=== PATIENT | female | born 1940 | race Caucasian/White ===

== ENCOUNTER → 2018-10-07 | Outpatient (CLI) | payer MEDICARE, BC ==
[~2018-10-07] MED LIST: ALBU2.5V8 INH; APIX2.5T PO; CALC-71 PO; DOCU-109 PO; FLEC100T PO; IBAN150T15 PO; IBUP200T58 PO; METO-239 PO; OXYC1TAB15 PO; PSYL0.5215 PO; TIOT18CA IH
[2018-10-07 09:51] VITALS: BP 162/72
== END | disposition home or self-care (01) ==
LOC: SURG 09:41
PROVIDERS: ATTEND Anesthesiology
DX: M47.813 Spondylosis without myelopathy or radiculopathy, cervicothoracic region (principal); M48.02 Spinal stenosis, cervical region; M54.6 Pain in thoracic spine; M54.2 Cervicalgia; J44.9 Chronic obstructive pulmonary disease, unspecified; G89.29 Other chronic pain; M19.90 Unspecified osteoarthritis, unspecified site; F17.210 Nicotine dependence, cigarettes, uncomplicated; Z90.89 Acquired absence of other organs; Z79.51 Long term (current) use of inhaled steroids; Z79.84 Long term (current) use of oral hypoglycemic drugs; Z79.01 Long term (current) use of anticoagulants; Z79.899 Other long term (current) drug therapy
CPT/HCPCS: 99204

== ENCOUNTER 2019-05-29 14:42 | Emergency (ER) | payer MEDICARE, BC ==
[~2019-05-29] VITALS: Ht 170.2 cm; Wt 60.0 kg
[2019-05-29 15:06] VITALS: BP 182/81
[2019-05-29] MEDS ORDERED: KETOROLAC 60 MG/2 ML VIAL. IM ONE (15:15)
[2019-05-29] MEDS ORDERED: ORPHENADRINE CITRATE 60 MG/2 ML VIAL. IM ONE (15:15)
--- NOTE | 2019-05-29 15:29 | RAD ---
THORACIC SPINE 3V History: Pain Comparison: Chest CT August 02, 2015 Findings: 3 views of the thoracic spine are submitted. There again has been vertebroplasty at T8 and T9. There is again compression deformity of T7 and superiorly of T6. There is now central and superior height loss of T10 and T11. There is anterior compression deformity of T12 in part present previously although somewhat increased degree of height loss. There is diffuse bone demineralization. There is cervical degenerative disc disease greatest C4-5 to C6-7. There is some atherosclerotic calcification greater near aortic arch. Lungs are not fully included. There is emphysema. Impression: 1. There is bone demineralization. There are multilevel thoracic compression fractures, new at T10 and T11 since 2016 exam and somewhat increased degree of height loss anteriorly of the T12 vertebral body. Correlation with point tenderness is advised. MRI would more accurately evaluate for chronicity of fractures. 2. There is emphysema. Electronically signed by: Yan Mojica MD (05/29/2019 3:26 PM) [id number]
--- NOTE | 2019-05-29 15:49 | PHYS DOC ---
Past History Past Medical History: A-Fib, COPD Past Surgical History: No Surgical History Alcohol Use: None General Adult EDM: Chief Complaint: BACK PAIN OR INJURY HPI: HPI: Patient is a 79-year-old female with chronic back pain who presents with several day history of worsening pain. She states that almost any movement causes her pain seems in the mid back and its radiating to the left. She denies any increased shortness of breath fever chills or sweats. She denies having any rash the pain she states is sharp and severe. [] Review of Systems: Review of Systems: Constitutional: Denies fever or chills Eyes: Denies change in visual acuity HENT: Denies nasal congestion or sore throat Respiratory: Denies cough or shortness of breath Cardiovascular: Denies chest pain or edema GI: Denies abdominal pain, nausea, vomiting, bloody stools or diarrhea : Denies dysuria Musculoskeletal: Reports back pain Integument: Denies rash Neurologic: Denies headache, focal weakness or sensory changes Endocrine: Denies polyuria or polydipsia Lymphatic: Denies swollen glands Psychiatric: Denies depression or anxiety Heart Score: Risk Factors: Risk Factors: DM, Current or recent (<one month) smoker, HTN, HLP, family history of CAD, obesity. Risk Scores: Score 0 - 3: 2.5% MACE over next 6 weeks - Discharge Home Score 4 - 6: 20.3% MACE over next 6 weeks - Admit for Clinical Observation Score 7 - 10: 72.7% MACE over next 6 weeks - Early Invasive Strategies Current Medications: Current Meds: Current Medications Medications (Trade) Dose Ordered Sig/[facility] Start Time Stop Time Status Last Admin Dose Admin Ketorolac Tromethamine (Toradol Im) 60 mg 1X ONCE 05/29/19 15:15 05/29/19 15:16 DC 05/29/19 15:31 60 MG Orphenadrine Citrate (Norflex) 60 mg 1X ONCE 05/29/19 15:15 05/29/19 15:16 DC 05/29/19 15:31 60 MG Allergies: Allergies: Allergies Coded Allergies Type Severity Reaction Last Updated Verified Penicillins Allergy Intermediate rash 10/07/18 Yes Physical Exam: PE: Constitutional: Well developed, well nourished, moderate distress, non-toxic appearance. [] HENT: Normocephalic, atraumatic, bilateral external ears normal, oropharynx moist, no oral exudates, nose normal. [] Eyes: PERRLA, EOMI, conjunctiva normal, no discharge. [] Neck: Normal range of motion, no tenderness, supple, no stridor. [] Cardiovascular:Heart rate regular rhythm, no murmur [] Lungs & Thorax: Bilateral breath sounds clear to auscultation [] Abdomen: Bowel sounds normal, soft, no tenderness, no masses, no pulsatile masses. [] Skin: Warm, dry, no erythema, no rash. [] Back: Tender to palp mid back proximally T9-10-11 area. [] Extremities: No tenderness, no cyanosis, no clubbing, ROM intact, no edema. [] Neurologic: Alert and oriented X 3, normal motor function, normal sensory function, no focal deficits noted. [] Psychologic: Affect normal, judgement normal, mood normal. [] Current Patient Data: Vital Signs: Vital Signs Date Time Temp Pulse Resp B/P (MAP) Pulse Ox O2 Delivery O2 Flow Rate FiO2 05/29/19 15:06 97.3 76 18 182/81 (114) 94 Room Air EKG: EKG: [] Radiology/Procedures: Radiology/Procedures: [] Impressions: REASON: pain PROCEDURE: THORACIC SPINE 3V THORACIC SPINE 3V History: Pain Comparison: Chest CT August 02, 2015 Findings: 3 views of the thoracic spine are submitted. There again has been vertebroplasty at T8 and T9. There is again compression deformity of T7 and superiorly of T6. There is now central and superior height loss of T10 and T11. There is anterior compression deformity of T12 in part present previously although somewhat increased degree of height loss. There is diffuse bone demineralization. There is cervical degenerative disc disease greatest C4-5 to C6-7. There is some atherosclerotic calcification greater near aortic arch. Lungs are not fully included. There is emphysema. Impression: 1. There is bone demineralization. There are multilevel thoracic compression fractures, new at T10 and T11 since 2016 exam and somewhat increased degree of height loss anteriorly of the T12 vertebral body. Correlation with point tenderness is advised. MRI would more accurately evaluate for chronicity of fractures. 2. There is emphysema. Course & Med Decision Making: Course & Med Decision Making Pertinent Labs and Imaging studies reviewed. (See chart for details) [] Niraj Disclaimer: Dragon Disclaimer: This electronic medical record was generated, in whole or in part, using a voice recognition dictation system. Departure Departure: Impression: Primary Impression: Thoracic compression fracture Qualified Codes: S22.070A - Wedge compression fracture of t9-t10 vertebra, initial encounter for closed fracture Disposition: HOME, SELF-CARE Condition: STABLE Referrals: [facility] (PCP) Patient Instructions: Back, Compression Fracture Additional Instructions: Continue your pain medication as prescribed. You will need to follow with an orthopedic surgeon in the very near future. KALYN BAIG DO May 29, 2019 15:49
== END 2019-05-29 16:01 | disposition home or self-care (01) ==
LOC: ER 14:42
DX: S22.070A Wedge compression fracture of T9-T10 vertebra, initial encounter for closed fracture (principal); J44.9 Chronic obstructive pulmonary disease, unspecified; I48.20 Chronic atrial fibrillation, unspecified; Z88.0 Allergy status to penicillin; X58.XXXA Exposure to other specified factors, initial encounter; Y93.89 Activity, other specified; Y92.89 Other specified places as the place of occurrence of the external cause; Y99.8 Other external cause status
CPT/HCPCS: 72072; 96372; 99284; J1885; J2360

== ENCOUNTER → 2019-08-28 | Outpatient (CLI) | payer MEDICARE, BC ==
[2019-08-28 11:52] VITALS: BP 173/94
== END | disposition home or self-care (01) ==
LOC: SURG 11:09
PROVIDERS: ATTEND Anesthesiology
DX: M47.814 Spondylosis without myelopathy or radiculopathy, thoracic region (principal); J44.9 Chronic obstructive pulmonary disease, unspecified; M19.90 Unspecified osteoarthritis, unspecified site; M48.02 Spinal stenosis, cervical region; M47.812 Spondylosis without myelopathy or radiculopathy, cervical region; Z79.899 Other long term (current) drug therapy
CPT/HCPCS: 99214; G0463

== ENCOUNTER → 2019-11-25 | Outpatient (CLI) | payer MEDICARE, BC ==
[2019-08-28 11:52] VITALS: BP 173/94
--- NOTE | 2019-11-25 15:14 | RAD ---
PA and lateral chest x-ray compared to similar exam dated August 01, 2015 for no indication. FINDINGS: Lungs are hyperinflated. There is a right basilar effusion, and there is new peripheral interstitial thickening of the lung bases which could reflect interstitial fibrosis, pulmonary edema, or interstitial infiltrate. Heart size is mildly enlarged but stable. Postsurgical changes of prior kyphoplasty are noted at 2 levels in the thoracic spine, likely T8 and T9, and there are chronic compression deformities of T7 and T12. New compression deformity is are seen at T10, T11, and T6. IMPRESSION: 1. COPD and chronic interstitial disease. 2. New new since 2016 are a right pleural effusion and worsening interstitial opacities in right base which could reflect a focal interstitial infiltrate. 3. Osteoporosis with multiple compression fractures, several which are new since 2016. Electronically signed by: Eleazar Calloway MD (11/25/2019 3:10 PM) [id number]
== END ==
LOC: DXRAD 11:39
PROVIDERS: ATTEND Physician Assistant
DX: J90 Pleural effusion, not elsewhere classified (principal); J92.9 Pleural plaque without asbestos; J44.9 Chronic obstructive pulmonary disease, unspecified; I50.9 Heart failure, unspecified; J84.10 Pulmonary fibrosis, unspecified; M43.8X4 Other specified deforming dorsopathies, thoracic region; M81.0 Age-related osteoporosis without current pathological fracture
CPT/HCPCS: 71046

== ENCOUNTER → 2020-01-01 | Outpatient (CLI) | payer MEDICARE, BC ==
[2019-08-28 11:52] VITALS: BP 173/94
--- NOTE | 2020-01-01 11:55 | RAD ---
EXAM: DUAL ENERGY X-RAY ABSORPTIOMETRY (DEXA). HISTORY: Postmenopausal screening. FINDINGS: The lowest measured T-score is -5.3 in the right distal radius, based on a bone mineral density of 0.337 g/cm^2. Refer to the worksheets for full detail. No comparison examinations are available. IMPRESSION: Osteoporosis. Bone mineral density yields a T-score of -2.5 or less. Fracture risk is high. FRAX was not calculated. METHODOLOGY: Dual energy x-ray absorptiometry was performed to measure bone mineral density. The following analysis is based on the 2019 Official Positions of the International Society for Clinical Densitometry: Measurements of the hips and the average of L1-L4 are preferred. When the spine and/or hip cannot be feasibly measured or interpreted, or in the setting of hyperparathyroidism, distal radial bone mineral density may be measured. The lumbar spine T-score is based on the average bone mineral density of L1-L4. In the setting of artifact or anatomic abnormality, some lumbar levels may be excluded, and the remaining levels used for calculation. A single lumbar level is not used for diagnosis, and if only a single level is available for assessment, another anatomic site will be used to assign a diagnosis. The hip T-score is based on the bone mineral density measurement of the femoral neck or total proximal femur of either side, whichever is lowest. Bilateral mean values are not used for diagnosis. The forearm T-score is derived from 33% of the distal radius of the nondominant forearm. For postmenopausal and perimenopausal women, and men age 50 or older, of all ethnic groups, T-scores are calculated through comparison of the current measurement with the NHANES III database standard for females aged 20-29 years. The lowest T-score of the evaluated anatomic sites is used to assign a diagnosis based on the World Health Organization densitometric classification. In premenopausal females and males younger than age 50, a Z-score is calculated based on population specific reference data for patient sex and self-reported ethnicity. Electronically signed by: Ilya Butler MD (01/01/2020 11:52 AM) [id number]
== END ==
LOC: PMG 10:59
PROVIDERS: ATTEND Physician Assistant
DX: Z13.820 Encounter for screening for osteoporosis (principal); M81.0 Age-related osteoporosis without current pathological fracture; M81.8 Other osteoporosis without current pathological fracture; N95.1 Menopausal and female climacteric states; S22.000A Wedge compression fracture of unspecified thoracic vertebra, initial encounter for closed fracture; X58.XXXA Exposure to other specified factors, initial encounter; Y93.89 Activity, other specified; Y92.89 Other specified places as the place of occurrence of the external cause; Y99.8 Other external cause status
CPT/HCPCS: 77080; 77081

== ENCOUNTER 2020-03-04 22:52 | Inpatient (IN) | payer MEDICARE, BC ==
[~2020-03-04] VITALS: Ht 165.1 cm; Wt 52.0 kg
--- NOTE | 2020-03-05 | EKG ---
[address] [address] Test Date: 2020-03-04 Test Time: 23:54:27 Pat Name: HAKAN CAPONE Department: Room: Gender: F [employer]: : 1940 Requested By: DEMETRIS HENDERSON Order Number: [id number] Reading MD: Measurements Intervals [place] Rate: 94 P: HI: QRS: 148 QRSD: 134 T: -46 QT: 366 QTc: 463 Interpretive Statements IRREGULAR RHYTHM, NO P-WAVE FOUND ABNORMAL RIGHT AXIS DEVIATION LOW LIMB LEAD VOLTAGE RIGHT BUNDLE BRANCH BLOCK RVH WITH REPOLARIZATION ABNORMALITY QRS(T) CONTOUR ABNORMALITY CONSIDER ANTEROSEPTAL MYOCARDIAL DAMAGE ABNORMAL ECG RI6.02 No previous ECG available for comparison
[2020-03-05] MEDS: IV RINGERS SOLUTION,LACTATED 1,000 ML IV SCH ×3 (00:05→06:47)
[2020-03-05 00:43] LABS: BASO # 0.1 x10^3/uL (0.0-0.2); BASO % 1 % (0-3); EOS % 0 % (0-3); HEMATOCRIT 44.8 % (36.0-47.0); HEMOGLOBIN 14.8 g/dL (12.0-15.5); LYMPH # 0.8 x10^3/uL (1.0-4.8); LYMPH % 6 % (24-48); MEAN CORPUSCULAR HEMOGLOBIN 30 pg (25-35); MEAN CORPUSCULAR HGB CONC 33 g/dL (31-37); MEAN CORPUSCULAR VOLUME 92 fL (79-100); MONO # 2.1 x10^3/uL (0.0-1.1); MONO % 17 % (0-9); NEUT # 9.3 x10^3uL (1.8-7.7); NEUT % 76 % (31-73); PLATELET COUNT 275 x10^3/uL (140-400); RED BLOOD COUNT 4.88 x10^6/uL (3.50-5.40); RED CELL DISTRIBUTION WIDTH 15.2 % (11.5-14.5); WHITE BLOOD COUNT 12.3 x10^3/uL (4.0-11.0)
[2020-03-05 00:51] LABS: ALBUMIN 2.6 g/dL (3.4-5.0); C REACTIVE PROTEIN 59.9 mg/L (0-3.3); CALCIUM 8.4 mg/dL (8.5-10.1); CREATININE 0.8 mg/dL (0.6-1.0); DIRECT BILIRUBIN 0.6 mg/dL (0.0-0.2); MAGNESIUM 1.9 mg/dL (1.8-2.4); TOTAL BILIRUBIN 1.3 mg/dL (0.2-1.0); TOTAL PROTEIN 6.7 g/dL (6.4-8.2)
[2020-03-05 01:18] LABS: POTASSIUM 3.4 mmol/L (3.5-5.1)
[2020-03-05] MEDS ORDERED: AZITHROMYCIN 250 MG in IV NORMAL SALINE 250ML 250 ML IV ONE (01:30)
[2020-03-05] MEDS ORDERED: methylPREDNISolone SOD SUCC PF 125 MG/2 ML VIAL. IV ONE (01:30)
[2020-03-05] MEDS ORDERED: ALBUTEROL SULFATE 8GM INHALER. INH ONE (01:30)
--- NOTE | 2020-03-05 01:31 | RAD ---
EXAM: CT head and cervical spine without contrast INDICATION: Headache and right-sided neck pain COMPARISON: None TECHNIQUE: Axial CT imaging through the head and cervical spine without intravenous contrast. Sagitta l and coronal reformats were obtained. One or more of the following individualized dose reduction techniques were utilized for this examinat ion: 1. Automated exposure control 2. Adjustment of the mA and/or kV according to patient size 3. Use of iterative reconstruction technique. FINDINGS: CT head: No intracranial hemorrhage, acute infarct, or mass lesion. Lopez-white matter differentiation is maint ained. Ventricles and sulci are prominent. There is mild periventricular white matter hypoattenuation . The skull and scalp are intact. Visualized paranasal sinuses and mastoid air cells are clear globes and orbits are intact.. CT cervical spine: The bones are diffusely demineralized. There is no acute fracture. 2 mm anterolisthesis of C7 on T1. Mild reversal lordosis. There is severe disc space narrowing, greatest at C4-C5 and C5-C6. Uncoverteb ral joint proliferation results in severe left and moderate right foraminal narrowing at C3-C4, moder ate to severe right and moderate left foraminal narrowing at C4-C5, severe left and moderate to sever e right foraminal narrowing at C5-C6, and severe bilateral foraminal narrowing at C6-C7. There are di sc osteophyte complexes at multiple levels, greatest at C6-C7 where there is mild canal narrowing. Mi ld multilevel facet arthrosis. Prevertebral soft tissues normal.Moderate centrilobular emphysema. IMPRESSION: 1. No acute intracranial abnormality. 2. No acute osseous abnormality of the cervical spine. 3. Severe degenerative disc disease with multilevel advanced foraminal narrowing and mild canal narro wing at C6-C7. Electronically signed by: Breonna King MD (03/05/2020 1:29 AM) [id number]
[2020-03-05] MEDS ORDERED: CONTRAST GIVEN. MC PRN (02:00)
[2020-03-05] MEDS ORDERED: IOHEXOL 350 MG/ML 100 ML VIAL. IV ONE (02:00)
[2020-03-05] MEDS ORDERED: cefTRIAXone SODIUM 1 GM VIAL ONE (02:16)
[2020-03-05] MEDS ORDERED: AZITHROMYCIN 500 MG VIAL. IV ONE (02:16)
[2020-03-05] MEDS ORDERED: IV NORMAL SALINE 50ML 50 ML ONE (02:16)
[2020-03-05] MEDS ORDERED: IV NORMAL SALINE 250ML 250 ML ONE (02:16)
--- NOTE | 2020-03-05 02:28 | RAD ---
EXAM: XR CHEST 1V 03/04/2020 12:39 AM CLINICAL INDICATION: Headache, neck pain, cough and congestion COMPARISON: Chest radiograph 11/25/2019 TECHNIQUE: AP view the chest FINDINGS: The heart is mildly enlarged. There are calcified mediastinal and hilar lymph nodes. Lungs are hyperexpanded. There are new airspace opacities in the left lung base. The small left pleural ef fusion. Small right pleural effusion versus pleural thickening is unchanged. Chronic appearing inters titial changes are stable. No pneumothorax. No acute osseous abnormality. IMPRESSION: 1. New left basilar opacities and small left pleural effusion suspicious for pneumonia. 2. Unchanged hyperexpansion of the lungs with chronic interstitial changes and pleural effusion or pl eural thickening at the right lung base. Electronically signed by: Breonna King MD (03/05/2020 2:25 AM) [id number]
--- NOTE | 2020-03-05 02:48 | RAD ---
Study: CT CHEST WITH CONTRAST - PULMONARY ANGIOGRAM History: Cough, dyspnea, congestion Comparison: Chest radiograph 03/04/[address] chest 08/02/2015 Technique: Helical CT of the chest performed after the administration of intravenous contrast and ti med for angiographic evaluation of the pulmonary arteries per PE protocol. Coronal and sagittal 3D MD P reformations were obtained. One or more of the following individualized dose reduction techniques were utilized for this examinat ion: 1. Automated exposure control 2. Adjustment of the mA and/or kV according to patient size 3. Use of iterative reconstruction technique. Findings: Pulmonary Arteries: Contrast bolus is adequate. No acute pulmonary embolism. Main pulmonary artery is enlarged measuring 4.1 cm. Heart/Systemic Vasculature: The right heart is enlarged. No pericardial effusion. The thoracic aorta is normal in caliber. Mediastinum: No lymphadenopathy.. Lungs: There is a new consolidation in the lingula and patchy groundglass and tree-in-bud opacities i n the lower lobes, and right middle lobe. Focal tree-in-bud opacities in the posterior right upper lo be. There is diffuse airway wall thickening. There is mild to moderate centrilobular emphysema. No pl eural effusion. Neck/Axilla/Body Wall: There is a coarse calcification in the left thyroid lobe. No axillary lymphade nopathy. Breast tissue symmetric. Upper Abdomen: Contrast refluxes into the inferior vena cava. There is moderate calcified atheroscler osis of the abdominal aorta. Calcified splenic granulomas noted. Bones: Unchanged T8 and T9 compression fractures post vertebroplasty. Unchanged T7 compression fractu re with approximately 75 percent vertebral body height loss. Worsened, now 40 percent vertebral heigh t loss of T6 compression fracture. New T5 compression fracture with milder height loss. New compressi on fractures of T10 and T11 with 50 percent vertebral body height loss and worsened height loss of th e T12 compression fracture, now 75 percent vertebral body height loss. There is 2 mm retropulsion of the posterior inferior cortex of T12. Degenerative disc disease in the upper lumbar spine. IMPRESSION: 1. No acute pulmonary embolism. 2. Lingular consolidation and patchy groundglass and tree-in-bud nodules in the left lower lobe and right lung suspicious for pneumonia. 3. Enlarged right heart. 4. Multiple compression fractures in the thoracic spine, some of which are new from 2016 and some clemens ve worsened height loss, as described. Electronically signed by: Breonna King MD (03/05/2020 2:45 AM) [id number]
--- NOTE | 2020-03-05 03:19 | PHYS DOC ---
Past History Past Medical History: A-Fib, Anxiety, Arthritis, Bronchitis, CAD, COPD, Pneumonia, Other Additional Past Medical Histor: hernia, compression fracture, smoker Past Surgical History: Tonsillectomy Smoking: Cigarettes Additional Smoking Information: daughter is not sure exactly how much pt smokes Alcohol Use: None General Adult EDM: Chief Complaint: HEADACHE HPI: HPI: ".I got a bad headache.. I feel bad everywhere.. Muscles hurt... Short of breath... More than usual... Yes I still smoke but only half pack a day... At most...".. " I galileo stopped some my meds... just felt like they were not helping..." Patient is a 80 year old female who presents with above hx and complaints myalgia, arthralgia, malaise, headache, dyspnea, fatigue, weakness, A. fib, and nonproductive cough. No history of recent travel or specific ill contacts. does get dialysis 3 times a week. Patient normally follows with Dr. Cash. Recently stopped taking some her meds because she was just tired and did not think she needed them anymore. Patient does have a history of dementia, chronic bronchitis, tobacco use, COPD, CHF, A. fib, arthritis , multiple compression fx of spine. . Patient is accompanied by her daughter. Daughter states her mom has not been as alert.. and maybe more confused recently. Review of Systems: Review of Systems: Constitutional: Subjective complaints of fever Eyes: Denies change in visual acuity HENT: Denies nasal congestion or sore throat Respiratory: History nonproductive cough and shortness of breath Cardiovascular: Lt chest wall pain GI: Denies abdominal pain, , vomiting, bloody stools or diarrhea . Complains o f nausea : Denies dysuria Musculoskeletal: Complains of generalized muscle and joint pain. Complains of generalized weakness Integument: Denies rash Neurologic: Complains of headache,. Denies focal weakness or sensory changes. Complains of generalized weakness Endocrine: Denies polyuria or polydipsia Lymphatic: Denies swollen glands Psychiatric: Denies depression or anxiety Family History: Family History: Noncontributory to presentation. Current Medications: Current Meds: Current Medications Medications (Trade) Dose Ordered Sig/Dhiraj Start Time Stop Time Status Last Admin Dose Admin Albuterol Sulfate (Ventolin Hfa Inhaler) 2 puff 1X ONCE 03/05/20 01:30 03/05/20 01:51 DC 03/05/20 01:30 2 PUFF Azithromycin (Zithromax) 500 mg STK-MED ONCE 03/05/20 02:16 03/05/20 02:16 DC Azithromycin 250 mg/Sodium Chloride 250 ml @ 250 mls/hr 1X ONCE 03/05/20 01:30 03/05/20 02:29 DC 03/05/20 02:00 250 MLS/HR Ceftriaxone Sodium 1 gm/ Sodium Chloride 50 ml @ 100 mls/hr 1X ONCE 03/05/20 01:30 03/05/20 01:59 DC 03/05/20 02:30 100 MLS/HR Ceftriaxone Sodium (Rocephin) 1 gm STK-MED ONCE 03/05/20 02:16 03/05/20 02:16 DC Fentanyl Citrate (Fentanyl 2ml Vial) 100 mcg STK-MED ONCE 03/05/20 00:03 03/05/20 00:03 DC Info (Do NOT chart on this entry -- for MONITORING) 1 each PRN DAILY PRN 03/05/20 02:00 03/07/20 01:59 Iohexol (Omnipaque 350 Mg/ml) 100 ml 1X ONCE 03/05/20 02:00 03/05/20 02:01 DC 03/05/20 01:59 100 ML Lactated Ringer's 1,000 ml @ 100 mls/hr Q10H 03/05/20 00:00 03/05/20 09:59 03/05/20 00:14 100 MLS/HR Methylprednisolone Sodium Succinate (SOLU-Medrol 125MG VIAL) 125 mg 1X ONCE 03/05/20 01:30 03/05/20 01:51 DC 03/05/20 02:00 125 MG Sodium Chloride 50 ml @ As Directed STK-MED ONCE 03/05/20 02:16 03/05/20 02:16 DC Allergies: Allergies: Allergies Coded Allergies Type Severity Reaction Last Updated Verified Penicillins Allergy Intermediate rash 10/07/18 Yes Physical Exam: PE: Constitutional: Moderate acute distress, chronically ill in appearance. [] HENT: Normocephalic, atraumatic, bilateral external ears normal, oropharynx moist, no oral exudates, nose normal. [] Temporal arteries nontender to palpation. Eyes: PERRLA, EOMI, conjunctiva normal, no discharge. [] Neck: Normal range of motion, no tenderness, supple, no stridor. Upper neck tenderness Cardiovascular:Heart rate irregular irregular regular rhythm, no murmur, PMI to left Lungs & Thorax: Bilateral breath sounds equal apex with wheezing throughout and crackles on left base on auscultation [] Abdomen: Bowel sounds normal, soft, no tenderness, no masses, no pulsatile masses. [] Skin: Warm, dry, no erythema, no rash. Poor turgor Back: No tenderness, no CVA tenderness. [] Extremities: No tenderness, no cyanosis, no clubbing, ROM intact, no edema. Arthritic changes. No cording appreciated Neurologic: Alert and oriented X 3, patient moves all extremities on request, has distal sensory,, no focal deficits noted. DTRs +2 patella and brachial. Case Management Associate equal. No drift. Does appear to have some memory deficits Psychologic: Affect anxious, judgement normal, mood depressed. Memory deficits Current Patient Data: Labs: Laboratory Tests Test 03/04/20 23:57 White Blood Count 12.3 x10^3/uL (4.0-11.0) H Red Blood Count 4.88 x10^6/uL (3.50-5.40) Hemoglobin 14.8 g/dL (12.0-15.5) Hematocrit 44.8 % (36.0-47.0) Mean Corpuscular Volume 92 fL (79-100) Mean Corpuscular Hemoglobin 30 pg (25-35) Mean Corpuscular Hemoglobin Concent 33 g/dL (31-37) Red Cell Distribution Width 15.2 % (11.5-14.5) H Platelet Count 275 x10^3/uL (140-400) Neutrophils (%) (Auto) 76 % (31-73) H Lymphocytes (%) (Auto) 6 % (24-48) L Monocytes (%) (Auto) 17 % (0-9) H Eosinophils (%) (Auto) 0 % (0-3) Basophils (%) (Auto) 1 % (0-3) Neutrophils # (Auto) 9.3 x10^3uL (1.8-7.7) H Lymphocytes # (Auto) 0.8 x10^3/uL (1.0-4.8) L Monocytes # (Auto) 2.1 x10^3/uL (0.0-1.1) H Eosinophils # (Auto) 0.0 x10^3/uL (0.0-0.7) Basophils # (Auto) 0.1 x10^3/uL (0.0-0.2) Prothrombin Time 11.3 SEC (9.4-11.4) Prothrombin Time INR 1.1 (0.9-1.1) Activated Partial Thromboplast Time 28 SEC (23-33) D-Dimer (Camelia) 1.80 mg/L (0.00-0.50) H Sodium Level 132 mmol/L (136-145) L Potassium Level 3.4 mmol/L (3.5-5.1) L Chloride Level 93 mmol/L (98-107) L Carbon Dioxide Level 38 mmol/L (21-32) H Anion Gap 1 (6-14) L Blood Urea Nitrogen 8 mg/dL (7-20) Creatinine 0.8 mg/dL (0.6-1.0) Estimated GFR (Cockcroft-Gault) 69.0 Glucose Level 104 mg/dL (70-99) H Calcium Level 8.4 mg/dL (8.5-10.1) L Magnesium Level 1.9 mg/dL (1.8-2.4) Total Bilirubin 1.3 mg/dL (0.2-1.0) H Direct Bilirubin 0.6 mg/dL (0.0-0.2) H Aspartate Amino Transferase (AST) 21 U/L (15-37) Alanine Aminotransferase (ALT) 20 U/L (14-59) Alkaline Phosphatase 112 U/L (46-116) Creatine Kinase 25 U/L (26-192) L Troponin I Quantitative < 0.017 ng/mL (0-0.055) C-Reactive Protein 59.9 mg/L (0-3.3) H HB-Hox-U-Type Natriuretic Peptide 3700 pg/mL (0-449) H Total Protein 6.7 g/dL (6.4-8.2) Albumin 2.6 g/dL (3.4-5.0) L Lipase 122 U/L (73-393) Vital Signs: Vital Signs Date Time Temp Pulse Resp B/P (MAP) Pulse Ox O2 Delivery O2 Flow Rate FiO2 03/05/20 02:32 98 Nasal Cannula 2.0 03/05/20 02:30 95 16 124/97 (106) 03/04/20 23:25 98.6 EKG: EKG: My interpretation EKG shows a A. fib rhythm irregularly irregular with right axis deviation and low limb voltage. Does have anterior septal changes. No findings of acute STEMI or contralateral changes. Does have a right bundle branch block with RVH. [] Radiology/Procedures: Radiology/Procedures: [address] [address] IMAGING REPORT Signed PATIENT: HAKAN CAPONEUNT: [id number] : 1940 LOCATION: ER AGE: 80 SEX: F EXAM STATUS: REG ER ORD. PHYSICIAN: DEMETRIS HENDERSON MD REASON: head pain, neck pain, cough, congestion PROCEDURE: PORTABLE CHEST 1V EXAM: XR CHEST 1V 03/04/2020 12:39 AM CLINICAL INDICATION: Headache, neck pain, cough and congestion COMPARISON: Chest radiograph 11/25/2019 TECHNIQUE: AP view the chest FINDINGS: The heart is mildly enlarged. There are calcified mediastinal and hilar lymph nodes. Lungs are hyperexpanded. There are new airspace opacities in the left lung base. The small left pleural effusion. Small right pleural effusion versus pleural thickening is unchanged. Chronic appearing interstitial changes are stable. No pneumothorax. No acute osseous abnormality. IMPRESSION: 1. New left basilar opacities and small left pleural effusion suspicious for pneumonia. 2. Unchanged hyperexpansion of the lungs with chronic interstitial changes and pleural effusion or pleural thickening at the right lung base. Electronically signed by: Breonna King MD (03/05/2020 2:25 AM) [id number] DICTATED AND SIGNED BY: BREONNA KING MD DATE: 03/05/20 0223 CC: DEMETRIS HENDERSON MD; RIGO CASH MD ~MTH0 [address] [address] IMAGING REPORT Signed PATIENT: HAKAN CAPONEUNT: [id number] : 1940 LOCATION: ER AGE: 80 SEX: F EXAM STATUS: REG ER ORD. PHYSICIAN: DEMETRIS HENDERSON MD REASON: Headache and right sided neck pain PROCEDURE: CT HEAD AND CERVICAL SPINE WO EXAM: CT head and cervical spine without contrast INDICATION: Headache and right-sided neck pain COMPARISON: None TECHNIQUE: Axial CT imaging through the head and cervical spine without intravenous contrast. Sagittal and coronal reformats were obtained. One or more of the following individualized dose reduction techniques were utilized for this examination: 1. Automated exposure control 2. Adjustment of the mA and/or kV according to patient size 3. Use of iterative reconstruction technique. FINDINGS: CT head: No intracranial hemorrhage, acute infarct, or mass lesion. Lopez-white matter differentiation is maintained. Ventricles and sulci are prominent. There is mild periventricular white matter hypoattenuation. The skull and scalp are intact. Visualized paranasal sinuses and mastoid air cells are clear globes and orbits are intact.. CT cervical spine: The bones are diffusely demineralized. There is no acute fracture. 2 mm anterolisthesis of C7 on T1. Mild reversal lordosis. There is severe disc space narrowing, greatest at C4-C5 and C5-C6. Uncovertebral joint proliferation results in severe left and moderate right foraminal narrowing at C3-C4, moderate to severe right and moderate left foraminal narrowing at C4-C5, severe left and moderate to severe right foraminal narrowing at C5-C6, and severe bilateral foraminal narrowing at C6-C7. There are disc osteophyte complexes at multiple levels, greatest at C6-C7 where there is mild canal narrowing. Mild multilevel facet arthrosis. Prevertebral soft tissues normal.Moderate centrilobular emphys chastity. IMPRESSION: 1. No acute intracranial abnormality. 2. No acute osseous abnormality of the cervical spine. 3. Severe degenerative disc disease with multilevel advanced foraminal narrowing and mild canal narrowing at C6-C7. Electronically signed by: Breonna King MD (03/05/2020 1:29 AM) [id number] DICTATED AND SIGNED BY: BREONNA KING MD DATE: 03/05/20 0119 CC: DEMETRIS HENDERSON MD; RIGO CASH MD ~MTH0 IMAGING REPORT Signed PATIENT: HAKAN CAPONECOUNT: [id number] : 1940 LOCATION: ER AGE: 80 SEX: F EXAM STATUS: REG ER ORD. PHYSICIAN: DEMETRIS HENDERSON MD REASON: COUGH, DYSPNEA, congestion Omni 350 100cc PROCEDURE: CT ANGIOGRAPHY CHEST Study: CT CHEST WITH CONTRAST - PULMONARY ANGIOGRAM History: Cough, dyspnea, congestion Comparison: Chest radiograph 03/04/[address] chest 08/02/2015 Technique: Helical CT of the chest performed after the administration of intravenous contrast and timed for angiographic evaluation of the pulmonary arteries per PE protocol. Coronal and sagittal 3D MIP reformations were obtained. One or more of the following individualized dose reduction techniques were utilized for this examination: 1. Automated exposure control 2. Adjustment of the mA and/or kV according to patient size 3. Use of iterative reconstruction technique. Findings: Pulmonary Arteries: Contrast bolus is adequate. No acute pulmonary embolism. Main pulmonary artery is enlarged measuring 4.1 cm. Heart/Systemic Vasculature: The right heart is enlarged. No pericardial effusion. The thoracic aorta is normal in caliber. Mediastinum: No lymphadenopathy.. Lungs: There is a new consolidation in the lingula and patchy groundglass and tree-in-bud opacities in the lower lobes, and right middle lobe. Focal tree-in-bud opacities in the posterior right upper lobe. There is diffuse airway wall thickening. There is mild to moderate centrilobular emphysema. No pleural effusion. Neck/Axilla/Body Wall: There is a coarse calcification in the left thyroid lobe. No axillary lymphadenopathy. Breast tissue symmetric. Upper Abdomen: Contrast refluxes into the inferior vena cava. There is moderate calcified atherosclerosis of the abdominal aorta. Calcified splenic granulomas noted. Bones: Unchanged T8 and T9 compression fractures post vertebroplasty. Unchanged T7 compression fracture with approximately 75 percent vertebral body height loss. Worsened, now 40 percent vertebral height loss of T6 compression fracture. New T5 compression fracture with milder height loss. New compression fractures of T10 and T11 with 50 percent vertebral body height loss and worsened height loss of the T12 compression fracture, now 75 percent vertebral body height loss. There is 2 mm retropulsion of the posterior inferior cortex of T12. Degenerative disc disease in the upper lumbar spine. IMPRESSION: 1. No acute pulmonary embolism. 2. Lingular consolidation and patchy groundglass and tree-in-bud nodules in the left lower lobe and right lung suspicious for pneumonia. 3. Enlarged right heart. 4. Multiple compression fractures in the thoracic spine, some of which are new from 2016 and some have worsened height loss, as described. Electronically signed by: Breonna King MD (03/05/2020 2:45 AM) [id number] DICTATED AND SIGNED BY: BREONNA KING MD DATE: 03/05/20 0230 CC: DEMETRIS HENDERSON MD; RIGO CASH MD ~MTH0 0 Heart Score: HEART Score for Chest Pain: HEART Score for Chest Pain Response (Comments) Value History Moderately Suspicious 1 ECG Nonspecific Repolarizatio 1 Age > 65 2 Risk Factors 1 or 2 Risk Factors 1 Troponin < Normal Limit 0 Total 5 Risk Factors: Risk Factors: DM, Current or recent (<one month) smoker, HTN, HLP, family history of CAD, obesity. Risk Scores: Score 0 - 3: 2.5% MACE over next 6 weeks - Discharge Home Score 4 - 6: 20.3% MACE over next 6 weeks - Admit for Clinical Observation Score 7 - 10: 72.7% MACE over next 6 weeks - Early Invasive Strategies Course & Med Decision Making: Course & Med Decision Making Pertinent Labs and Imaging studies reviewed. (See chart for details) Review presentation, testing and tx. plan with Dr. Cedillo. Admit to medical room. Hermelindo. Impression: 1. Atypical Pneumonia 2. CHF diastolic and systolic dysfunction BNP 3700 3. A. fib- with controlled ventricle rate 4. Elevated D-dimer 1.80 5. Viral syndrome-headache, myalgia, arthralgia, malaise 6. COPD-exacerbation 7. DNRs No intubation, No shocks, No CPR. (Meds and comfort care okay) [] Niraj Disclaimer: Niraj Disclaimer: This electronic medical record was generated, in whole or in part, using a voice recognition dictation system. Departure Departure: Referrals: RIGO CASH MD (PCP) Niraj Disclaimer This chart was dictated in whole or in part using Voice Recognition software in a busy, high-work load, and often noisy Emergency Department environment. It may contain unintended and wholly unrecognized errors or omissions. Dragon Disclaimer This chart was dictated in whole or in part using Voice Recognition software in a busy, high-work load, and often noisy Emergency Department environment. It may contain unintended and wholly unrecognized errors or omissions. Dragon Disclaimer This chart was dictated in whole or in part using Voice Recognition software in a busy, high-work load, and often noisy Emergency Department environment. It may contain unintended and wholly unrecognized errors or omissions. DEMETRIS HENDERSON MD Mar 05, 2020 03:19
[2020-03-05 03:26] LABS: INFLUENZA A PATIENT NEGATIVE (NEGATIVE); INFLUENZA B PATIENT NEGATIVE (NEGATIVE)
[2020-03-05] MEDS ORDERED: FUROSEMIDE 40 MG/4 ML VIAL IVP ONE (03:30)
[2020-03-05 03:44] LABS: BILIRUBIN,URINE NEG (NEG); CLARITY,URINE HAZY; COLOR,URINE AMBER; GLUCOSE,URINE NEG (NEG); NITRITE,URINE NEG (NEG)
[2020-03-05 03:45] LABS: BACTERIA,URINE FEW /HPF (0-FEW); RBC,URINE OCC /HPF (0-2); SQUAMOUS EPITHELIAL CELL,UR FEW /LPF; WBC,URINE OCC /HPF (0-4)
[2020-03-05] MEDS ORDERED: ONDANSETRON PF 4 MG/2 ML VIAL. IVP PRN (04:00)
[2020-03-05 04:10] LABS: BARBITURATES NEG (NEG); BENZODIAZEPINES NEG (NEG); CANNABINOIDS NEG (NEG); COCAINE NEG (NEG); METHADONE NEG (NEG); OPIATES NEG (NEG); PHENCYCLIDINE NEG (NEG)
[2020-03-05 04:17] LABS: AMPHETAMINE/METHAMPHETAMINE NEG (NEG)
[2020-03-05 06:47] VITALS: BP 107/79
[2020-03-05] MEDS: LACTOBACILLUS RHAMNOSUS GG 1 CAPSULE. PO SCH ×2 (07:46→21:27)
[2020-03-05] MEDS: methylPREDNISolone SOD SUCC PF 125 MG/2 ML VIAL. IV SCH (07:46)
[2020-03-05] MEDS: APIXABAN 2.5 MG TABLET PO SCH ×2 (07:47→21:28)
[2020-03-05] MEDS ORDERED: IPRATRPIUM/ALBUTEROL 0.5/2.5MG 3 ML NEBU. NEB SCH (08:00)
[2020-03-05 08:23] VITALS: BP 110/77
[2020-03-05] MEDS ORDERED: AZITHROMYCIN 500 MG in IV NORMAL SALINE 250ML 250 ML IV SCH (08:30)
--- NOTE | 2020-03-05 08:47 | HP ---
ADMIT DATE: 03/05/2020 ATTENDING PHYSICIAN: Dr. Graham. CHIEF COMPLAINT: Weakness, headache. HISTORY OF PRESENT ILLNESS: The patient is an 80-year-old female with multiple medical issues. She comes in complaining of profound weakness and shortness of breath. No specific COVID exposure. Her gets dialysis 3 times a week. She has significant chronic obstructive pulmonary disease, recently she stopped some of her meds because she was tired. She was found to have bilateral pneumonia along with her COPD changes. The CT showed no evidence of pulmonary embolus, but she has ground glass appearing atypical pneumonia. Her COVID swab is pending. She is admitted for further treatment and evaluation. She received intravenous Rocephin and Zithromax in the ED, Her daughter states mom has been more confused recently. PAST MEDICAL HISTORY: Significant for paroxysmal atrial fibrillation, generalized anxiety, arthritis, coronary artery disease, COPD, and pneumonia. In addition, she had compression fracture. She has been a heavy smoker in the past. CURRENT MEDICATIONS: Reviewed. She was taking albuterol, Eliquis, flecainide, metoprolol, oxycodone, Metamucil and Spiriva. ALLERGIES: SHE HAS ALLERGIES TO PENICILLIN, EXACT REACTION IS UNCLEAR. SOCIAL HISTORY: Smoking history as noted. FAMILY HISTORY: Unobtainable. REVIEW OF SYSTEMS: Significant for generalized debilitation, chronic lung issues. She lives with her . No documented COVID exposure. All other systems reviewed and turned to be negative. PHYSICAL EXAMINATION: GENERAL: When I saw her, this is a pleasant, elderly, cachectic female. INITIAL VITAL SIGNS: Showed a blood pressure 130/82, pulse is 95 and regular, temperature 98.6 degrees Fahrenheit, oxygen saturation 94% on 2 liters nasal cannula. HEENT: Orbits are sunken. Pupils are reactive. Sclerae nonicteric. Oropharynx is clear. NECK: Supple. No stridor. LUNGS: Diffuse rhonchi in the left base, diminished breath sounds and shallow respirations. CARDIOVASCULAR: Showed distant heart tones. No gallops. ABDOMEN: Soft, scaphoid, nontender, no organomegaly. Bowel sounds are hypoactive. EXTREMITIES: Showed no cyanosis or edema. NEUROLOGIC: Focally intact. No deficit. Speech is fluent. She is nonambulatory at this time. SKIN: Otherwise, warm and dry. LABORATORY DATA: CT as noted. White count is 12,300, hemoglobin 14.8 gram. Electrolytes: Sodium 132 mEq, potassium 3.4, creatinine is 0.8. Cardiac enzymes negative. Nonfasting blood sugar 104. ASSESSMENT: 1. An 80-year-old female with bilateral pneumonia, atypical in nature consistent with COVID-19. 2. Chronic obstructive pulmonary disease. 3. Acute on chronic respiratory failure. 4. Pulmonary cachexia. 5. Compression fractures, multiple. 6. Continued tobacco abuse. 7. History of coronary artery disease. 8. Paroxysmal atrial fibrillation. 9. Chronic anticoagulation. PLAN: 1. Admit to the inpatient unit. 2. Empiric intravenous antibiotics. 3. Cortical steroids. 4. Diet as tolerated. 5. Continue home meds. 6. Gentle IV hydration. She is a DNR per advanced directive. Her prognosis is quite guarded. RADHA GRAHAM MD DR: CONSUELO/coleman JOB#: [id number] / [id number] RIGO Tineo MD
[2020-03-05] MEDS ORDERED: APIXABAN 2.5 MG TABLET PO SCH (09:00)
[2020-03-05 11:10] VITALS: BP 100/66
[2020-03-05] MEDS: IPRATROPIUM/ALBUTEROL 20/100mcg/INH INHALER. INH SCH ×3 (12:00→21:27)
[2020-03-05 15:40] VITALS: BP 107/66
[2020-03-05] MEDS: ACETAMINOPHEN 325 MG TABLET PO PRN ×2 (17:19→21:27)
[2020-03-05 20:40] VITALS: BP 114/83
[2020-03-05] MEDS ORDERED: AZITHROMYCIN 250 MG TABLET. PO SCH (21:00)
[2020-03-05] MEDS: AZITHROMYCIN 500 MG in IV NORMAL SALINE 250ML 250 ML IV SCH (22:20)
[2020-03-06 06:45] VITALS: BP 121/75
[2020-03-06] MEDS: MORPHINE SULFATE 2 MG/ML DISP.SYRIN. IV PRN ×3 (06:50→21:18)
[2020-03-06] MEDS: IPRATROPIUM/ALBUTEROL 20/100mcg/INH INHALER. INH SCH ×4 (08:00→20:00)
[2020-03-06] MEDS: LACTOBACILLUS RHAMNOSUS GG 1 CAPSULE. PO SCH ×2 (08:08→21:18)
[2020-03-06] MEDS: APIXABAN 2.5 MG TABLET PO SCH ×2 (08:08→21:18)
[2020-03-06] MEDS: methylPREDNISolone SOD SUCC PF 125 MG/2 ML VIAL. IV SCH (08:08)
[2020-03-06] MEDS: ACETAMINOPHEN 325 MG TABLET PO PRN ×2 (08:08→13:26)
--- NOTE | 2020-03-06 08:27 | PN ---
DATE: 03/06/2020 ATTENDING PHYSICIAN: Dr. Radha Graham SUBJECTIVE: She is better today. She is alert. She is less dyspneic. She denied any new pain, nausea, preliminary report shows that her COVID-19 swab was negative. OBJECTIVE FINDINGS: VITAL SIGNS: Blood pressure this morning is 121/75, pulse is 55 and regular, oxygen saturation 100% on 2 liters by nasal cannula, temperature is 97.8 degrees Fahrenheit. HEENT: Head is without trauma. Pupils are reactive. Sclerae are nonicteric. The oropharynx is clear. NECK: Supple, no bruits. LUNGS: Coarse rhonchi bilaterally. CARDIOVASCULAR: Showed distant heart tones. No gallops. ABDOMEN: Soft. EXTREMITIES: Without edema. NEUROLOGIC: Focally intact. Speech is fluent. SKIN: Warm and dry. EXTREMITIES: Showed significant muscle wasting. ASSESSMENT: 1. An 80-year-old female with acute on chronic respiratory failure, improved. 2. Bilateral pneumonia, bacterial. COVID-19 ruled out. 3. Chronic obstructive pulmonary disease. 4. Longstanding tobacco abuse. 5. Pulmonary cachexia. 6. Osteoporosis. 7. Multiple compression fractures. 8. History of coronary artery disease. 9. Paroxysmal atrial fibrillation. 10. Chronic anticoagulation. PLAN: 1. Continue empiric antibiotics as ordered. 2. Cortical steroids. 3. Advance diet as tolerated. 4. Continue home meds. 5. Gentle IV hydration. She remains a DNR per advanced directive. 6. Exercise oximetry. 7. Follow up chest x-ray tomorrow morning. RDAHA GRAHAM MD DR: CONSUELO/coleman JOB#: [id number] / [id number]
[2020-03-06 11:07] LABS: CALCIUM 8.3 mg/dL (8.5-10.1); CREATININE 0.8 mg/dL (0.6-1.0); POTASSIUM 3.7 mmol/L (3.5-5.1)
[2020-03-06 11:14] VITALS: BP 113/75
[2020-03-06 11:23] LABS: BASO % 0 % (0-3); EOS % 0 % (0-3); HEMATOCRIT 46.7 % (36.0-47.0); HEMOGLOBIN 15.3 g/dL (12.0-15.5); LYMPH # 0.3 x10^3/uL (1.0-4.8); LYMPH % 3 % (24-48); MEAN CORPUSCULAR HEMOGLOBIN 31 pg (25-35); MEAN CORPUSCULAR HGB CONC 33 g/dL (31-37); MEAN CORPUSCULAR VOLUME 94 fL (79-100); MONO # 0.6 x10^3/uL (0.0-1.1); MONO % 6 % (0-9); NEUT # 8.5 x10^3uL (1.8-7.7); NEUT % 90 % (31-73); PLATELET COUNT 256 x10^3/uL (140-400); RED BLOOD COUNT 4.95 x10^6/uL (3.50-5.40); RED CELL DISTRIBUTION WIDTH 15.2 % (11.5-14.5); WHITE BLOOD COUNT 9.4 x10^3/uL (4.0-11.0)
[2020-03-06 19:00] VITALS: BP 126/79
[2020-03-06] MEDS: AZITHROMYCIN 500 MG in IV NORMAL SALINE 250ML 250 ML IV SCH (22:08)
[2020-03-07] MEDS: ACETAMINOPHEN 325 MG TABLET PO PRN ×2 (00:37→21:29)
[2020-03-07 06:14] VITALS: BP 137/77
--- NOTE | 2020-03-07 08:19 | RAD ---
EXAM: CHEST ONE VIEW. HISTORY: Pneumonia. COMPARISON: 03/05/2020. FINDINGS: A frontal view of the chest is obtained. Small bilateral pleural effusions are stable. Subpleural predominant interstitial opacities are not c learly changed. An airspace infiltrate in the left base has improved. There is no pneumothorax. The h eart is not enlarged. There are atherosclerotic calcifications of the aorta. Vertebroplasty changes a re noted. IMPRESSION: 1. Mildly improved left basilar infiltrate. 2. Stable subpleural interstitial opacities consistent with interstitial lung disease. Stable small p leural effusions. Electronically signed by: Ilya Butler MD (03/07/2020 8:16 AM) [id number]
[2020-03-07] MEDS: IPRATROPIUM/ALBUTEROL 20/100mcg/INH INHALER. INH SCH ×4 (08:21→20:00)
[2020-03-07] MEDS: APIXABAN 2.5 MG TABLET PO SCH ×2 (08:22→21:29)
[2020-03-07] MEDS: methylPREDNISolone SOD SUCC PF 125 MG/2 ML VIAL. IV SCH (08:22)
[2020-03-07] MEDS: LACTOBACILLUS RHAMNOSUS GG 1 CAPSULE. PO SCH ×2 (08:22→21:29)
--- NOTE | 2020-03-07 10:21 | PN ---
DATE: 03/07/2020 ATTENDING PHYSICIAN: Dr. Graham SUBJECTIVE: Feeling better. She is alert. She is breathing well. We have her on a good saturation marginal supplemental oxygen. Room air sats are pending. OBJECTIVE FINDINGS: VITAL SIGNS: Blood pressure today is 137/77, pulse is 90 and regular, temperature 97.6 degrees Fahrenheit, oxygen saturation 92% on 2 liters. We are checking a room air saturation. HEENT: Head is without trauma. Pupils are reactive. Sclerae are nonicteric. Oropharynx is clear. NECK: Supple, no bruits identified. LUNGS: Decreased rhonchi at bases. CARDIOVASCULAR: Showed regular heart tones. No gallops. ABDOMEN: Soft. EXTREMITIES: Without edema. NEUROLOGIC: Focally intact. Speech is fluent. Paper Gluing Operator intact. SKIN: Warm and dry. PERTINENT LABORATORY STUDIES: Potassium was replaced up to 3.7 mEq, creatinine of 0.8 mg/dL. Followup chest x-ray showed COPD changes, but improvement in clearing of bibasilar infiltrates. Her COVID-19 swab was reported negative. ASSESSMENT: 1. An 80-year-old female with acute on chronic respiratory failure, improved. 2. Bilateral pneumonia, COVID-19 coronavirus has been ruled out. 3. Chronic obstructive pulmonary disease. 4. Longstanding tobacco addiction. 5. Pulmonary cachexia. 6. Osteoporosis with multiple compression fractures. 7. Known history of coronary artery disease. 8. Paroxysmal atrial fibrillation. 9. Chronic anticoagulation. PLAN: 1. Continue antibiotics as ordered. 2. Decrease steroid dose. 3. Diet as tolerated. 4. Home meds continue. 5. Exercise oximetry. We will check a room air sat. She may not need supplemental oxygen. 6. Followup lab work. Tentative discharge plans for tomorrow. RADHA GRAHAM MD DR: CONSUELO/coleman JOB#: [id number] / [id number]
[2020-03-07 11:32] VITALS: BP 121/86
[2020-03-07 15:27] VITALS: BP 135/97
[2020-03-07 19:53] VITALS: BP 124/81
[2020-03-07] MEDS: AZITHROMYCIN 500 MG in IV NORMAL SALINE 250ML 250 ML IV SCH (22:35)
[2020-03-07] MEDS: MORPHINE SULFATE 2 MG/ML DISP.SYRIN. IV PRN (23:31)
[2020-03-08] MEDS: ACETAMINOPHEN 325 MG TABLET PO PRN (03:47)
[2020-03-08 06:10] VITALS: BP 154/87
[2020-03-08] MEDS: APIXABAN 2.5 MG TABLET PO SCH (08:04)
[2020-03-08] MEDS: LACTOBACILLUS RHAMNOSUS GG 1 CAPSULE. PO SCH (08:04)
[2020-03-08] MEDS: IPRATROPIUM/ALBUTEROL 20/100mcg/INH INHALER. INH SCH (08:04)
[2020-03-08] MEDS: methylPREDNISolone SOD SUCC PF 125 MG/2 ML VIAL. IV SCH (08:06)
--- NOTE | 2020-03-08 10:57 | DS ---
DATE OF DISCHARGE: 03/08/2020 ATTENDING PHYSICIAN: Dr. Graham. FINAL DISCHARGE DIAGNOSES: 1. Acute on chronic respiratory failure, improved. 2. Bilateral pneumonia, COVID-19 coronavirus ruled out. 3. Chronic obstructive pulmonary disease, longstanding. 4. Longstanding tobacco addiction. 5. Pulmonary cachexia. 6. Osteoporosis. 7. Paroxysmal atrial fibrillation, controlled. 8. Known history of coronary artery disease. 9. Chronic anticoagulation. HISTORY AND PHYSICAL: The patient is an 80-year-old female who has been fairly active. Unfortunately, she continues to smoke. She has significant COPD. She was admitted then with increasing shortness of breath, congestion and weakness. Chest x-ray on admission showed bilateral and bibasilar infiltrates. PHYSICAL EXAMINATION: Please see the dictated note. PERTINENT LABORATORY AND X-RAY STUDIES: Admission hemoglobin was 14.8 g/dL; white count 12,300, repeat white count was down to 9400. Chemistry panel fairly unremarkable. Sodium 132 mEq, potassium 3.7, creatinine was 0.8 mg/dL, nonfasting blood sugar 104. Transaminases within normal range. Two sets of cardiac enzymes were negative for coronary ischemia. BNP is elevated at 3700. I suspect this is due to elevation from right heart failure. Chest x-ray demonstrated left basilar opacities, small pleural effusions, hyperexpansion and COPD changes. Followup x-ray a few days later showed some clearing of the left lower lobe infiltrate, not completely resolved, COPD changes remain. COURSE IN THE HOSPITAL: The patient was admitted. She was started on empiric intravenous antibiotics, steroids and aerosol treatment. She did well. She was more alert. We were able to wean her oxygen requirements down where she had a normal oxygen saturation 92% on room air. Her influenza swabs were negative, coronavirus came back negative and blood cultures were negative at 72 hours. She received 4 full days of intravenous antibiotics and she was ready for discharge home. At this time, I recommend prednisone 40 mg p.o. daily with a slow taper in addition 7 more days of cephalexin 500 mg p.o. t.i.d. and Zithromax 500 mg p.o. daily. Other home meds includes her apixaban 2.5 mg b.i.d., albuterol, metoprolol 25 mg daily, oxycodone p.r.n. pain, Spiriva, and flecainide 100 mg b.i.d. I suggested she follow up with her primary care physician, Dr. Cash in a couple of weeks. She was discharged then from our hospital in stable condition with explicit instructions for followup care. In addition, I recommended increase calories for weight gain. I discussed with the daughter to monitor her daily weights and to try protein milkshake at home. She was discharged then from our hospital in stable condition with explicit instructions and followup care. RADHA GRAHAM MD DR: CONSUELO/coleman JOB#: [id number] / [id number] Katie Vallejo
--- NOTE | 2020-03-08 12:57 | DS ---
DATE OF DISCHARGE: 03/08/2020 ADDENDUM Please send a copy of the discharge summary to AVIS Powers instead of Katie Cash. The patient was confused regarding her primary care provider. Total discharge time spent 43 minutes in discharge preparation. RADHA GRAHAM MD DR: CONSUELO/coleman JOB#: [id number] / [id number] REX Gonzalez
== END 2020-03-08 11:19 | disposition home or self-care (01) | DRG 177 ==
LOC: ER 22:52 → 1 SOUTH 03-05 03:30
PROVIDERS: ADMIT Hospitalist; ATTEND Hospitalist
DX: J15.6 Pneumonia due to other Gram-negative bacteria (principal); J96.20 Acute and chronic respiratory failure, unspecified whether with hypoxia or hypercapnia; I50.40 Unspecified combined systolic (congestive) and diastolic (congestive) heart failure; J44.0 Chronic obstructive pulmonary disease with (acute) lower respiratory infection; R64 Cachexia; M84.48XA Pathological fracture, other site, initial encounter for fracture; J15.9 Unspecified bacterial pneumonia; B34.9 Viral infection, unspecified; F03.90 Unspecified dementia, unspecified severity, without behavioral disturbance, psychotic disturbance, mood disturbance, and anxiety; F17.200 Nicotine dependence, unspecified, uncomplicated; F41.1 Generalized anxiety disorder; I25.10 Atherosclerotic heart disease of native coronary artery without angina pectoris; I48.0 Paroxysmal atrial fibrillation; M81.0 Age-related osteoporosis without current pathological fracture; Z20.822 Contact with and (suspected) exposure to COVID-19; Z51.5 Encounter for palliative care; Z79.01 Long term (current) use of anticoagulants; Z79.899 Other long term (current) drug therapy; M19.90 Unspecified osteoarthritis, unspecified site; Z88.0 Allergy status to penicillin
CPT/HCPCS: 36415; 70450; 71045; 71275; 72125; 80048; 80076; 80307; 81001; 82550; 83690; 83735; 83880; 84443; 84484; 85025; 85379; 85610; 85730; 86140; 87040; 87804; 93005; 94640; 96374; 96375; J0456; J0696; J1940; J2270; J2930; J3010; J7050; J7120; Q9967; U0003; 94664; 99285-25

== ENCOUNTER → 2020-05-18 | Outpatient (CLI) | payer MEDICARE, BC ==
--- NOTE | 2020-05-18 14:40 | RAD ---
XR ABDOMEN 2V Clinical Indication: Reason: RUQ AND LUQ PAIN / Spl. Instructions: / History: Comparison: AP chest March 07, 2020. Findings: There is probable parenchymal scarring in the left lung base. Flattening of hemidiaphragms. No intraperitoneal free air is seen. There is mild air in the stomach. There is a paucity of bowel ga s decreasing sensitivity. Atherosclerotic abdominal aorta and iliac arteries. There is mild right con vexity lumbar rotoscoliosis. IMPRESSION: Nonobstructive bowel gas pattern. Electronically signed by: Afshin Kennedy MD (05/18/2020 2:38 PM) [id number]
== END ==
LOC: RAD 14:07
PROVIDERS: ATTEND Physician Assistant
DX: R10.31 Right lower quadrant pain (principal); R10.32 Left lower quadrant pain; M41.86 Other forms of scoliosis, lumbar region
CPT/HCPCS: 74019

== ENCOUNTER 2020-05-21 17:52 | Emergency (ER) | payer MEDICARE, BC ==
[~2020-05-21] VITALS: Ht 165.1 cm; Wt 52.0 kg
--- NOTE | 2020-05-21 18:43 | PHYS DOC ---
Past History Past Medical History: A-Fib, Anxiety, Arthritis, Bronchitis, CAD, COPD, Pneumonia, Other Additional Past Medical Histor: hernia, compression fracture, smoker Past Surgical History: Tonsillectomy Smoking: Cigarettes Alcohol Use: None Adult General Chief Complaint Chief Complaint: MULTIPLE COMPLAINTS HPI HPI Patient is an 80-year-old female with a past medical history significant for A. fib on Eliquis and heart failure who presents with family after a fall. Family states that she fell earlier in the day while in the bathroom. States that her found her on the ground and helped her up. States she was doing well most of the day, acting normal, eating and drinking but over the last few hours seemed tired and a little confused. States she was recently started on metoprolol for her blood pressure as well. Patient does not remember the fall this morning and denies headache, changes in vision, neck pain, chest pain, shortness of breath, dysuria, hematuria or blood in the stool. Endorses mild generalized abdominal discomfort. Denies any recent travel, illnesses, fevers, known ill contacts. States has been otherwise eating and drinking normally for her. Review of Systems Review of Systems Review of systems otherwise unremarkable except noted in HPI Allergies Allergies Allergies Coded Allergies Type Severity Reaction Last Updated Verified Penicillins Allergy Intermediate rash 10/07/18 Yes Physical Exam Physical Exam Constitutional: Cachectic no acute distress, non-toxic appearance. [] HENT: Normocephalic, atraumatic, bilateral external ears normal, oropharynx moist, no oral exudates, nose normal. [] Eyes: PERRLA, EOMI, conjunctiva normal, no discharge. [] Neck: Normal range of motion, mild generalized tenderness in paracervical spinal muscles, supple, no stridor. [] Cardiovascular: Sinus bradycardia [] Lungs & Thorax: Global, bilateral rhonchi Abdomen: , soft, tenderness just to the left of the umbilicus, no guarding, no rebound, no masses, no pulsatile masses. [] Skin: Warm, dry, no erythema, no rash. [] Back: No tenderness, [] Extremities: No tenderness, no cyanosis, no clubbing, ROM intact, no edema. [] Neurologic: GCS of 13 (E3, M4, V6), gross motor intact, gross sensation intact, cranial nerves intact Psychologic: Affect normal, mood normal. [] EKG EKG [] Radiology/Procedures Radiology/Procedures [] IMPRESSION: 1. Compression fracture of the T12 vertebral body which is age indeterminate, correlate with point tenderness. 2. Chronic appearing fractures of the midthoracic spine. 3. Cholelithiasis with wall thickening of the gallbladder. Correlate with symptomatology to determine the need for further evaluation with ultrasound. 4. Diverticulosis without evidence of acute diverticulitis. FINDINGS: CT head: The ventricles and sulci are mildly prominent, within normal limits for age. Lopez-white matter differentiation is maintained. There is no intracranial hemorrhage, acute infarct, or mass lesion. Basal cisterns are clear. The calvarium is intact. Paranasal sinuses and mastoid air cells are clear. Globes and orbits are intact. CT cervical spine: No acute fracture. There is unchanged to mm anterolisthesis of C2 on C3 and C7 on T1 and reversal of lordosis. There is severe disc space narrowing from C3-C4 through C6-C7. 3.There is mild rightward curvature of the cervical spine. Multilevel foraminal narrowing due to uncovertebral joint proliferation. There i s canal narrowing at C7 due to disc osteophyte complex. Mild emphysema and pleural parenchymal scarring in the lung apices. Prevertebral soft tissues normal. IMPRESSION: 1. No acute intracranial abnormality. 2. No acute osseous abnormality of the cervical spine. 3. Unchanged multilevel degenerative disc disease. Heart Score C/O Chest Pain: No Risk Factors: Risk Factors: DM, Current or recent (<one month) smoker, HTN, HLP, family history of CAD, obesity. Risk Scores: Risk Factors: DM, Current or recent (<one month) smoker, HTN, HLP, family history of CAD, obesity. Course & Med Decision Making Course & Med Decision Making Patient is an 80-year-old female on Eliquis who presents to emergency department with family after fall and sleepiness and mild confusion Vital signs notable for sinus bradycardia. Physical exam noted above. Patient placed on the monitor with IV access established. EKG noted above with some T wave inversions in 2 and 3 with a mildly elevated troponin 0.7. Laboratory analysis notable for hyponatremia 127 and elevated BNP. Imaging of the head, C-spine, chest, abdomen and pelvis noted above with no acute intracranial bleeding, osseous abnormality. Notable for mild thickening of the gallbladder wall with some stones but no pericholecystic fluid, no tend erness in the right upper quadrant Discussed findings with family and recommended transfer to [facility] for continued evaluation given the multiple pathologies including hyponatremia, elevated troponin and abnormal EKG. Family grateful, verbalized understanding and agreed with plan of transfer and admission. [] Dragon Disclaimer Dragon Disclaimer This electronic medical record was generated, in whole or in part, using a voice recognition dictation system. Departure Departure: Impression: Primary Impression: Hyponatremia Additional Impressions: Elevated troponin Fall Fatigue Disposition: 02 DC/TRF OTHER SHORT TERM HOS Admitting Physician: Shade Medina Condition: IMPROVED Referrals: RIGO FERRER MD (PCP) Problem Qualifiers KARY EDWARDS MD May 21, 2020 18:43
[2020-05-21] MEDS ORDERED: IOHEXOL 300 MG/ML 75 ML VIAL. IV ONE (19:00)
[2020-05-21 19:20] LABS: BASO # 0.1 x10^3/uL (0.0-0.2); BASO % 1 % (0-3); EOS # 0.1 x10^3/uL (0.0-0.7); EOS % 2 % (0-3); HEMATOCRIT 49.9 % (36.0-47.0); HEMOGLOBIN 16.5 g/dL (12.0-15.5); LYMPH # 1.1 x10^3/uL (1.0-4.8); LYMPH % 15 % (24-48); MEAN CORPUSCULAR HEMOGLOBIN 32 pg (25-35); MEAN CORPUSCULAR HGB CONC 33 g/dL (31-37); MEAN CORPUSCULAR VOLUME 96 fL (79-100); MONO # 1.1 x10^3/uL (0.0-1.1); MONO % 15 % (0-9); NEUT # 4.9 x10^3uL (1.8-7.7); NEUT % 68 % (31-73); PLATELET COUNT 120 x10^3/uL (140-400); RED BLOOD COUNT 5.19 x10^6/uL (3.50-5.40); RED CELL DISTRIBUTION WIDTH 14.5 % (11.5-14.5); WHITE BLOOD COUNT 7.2 x10^3/uL (4.0-11.0)
[2020-05-21 19:24] LABS: CALCIUM 9.2 mg/dL (8.5-10.1); CREATININE 1.6 mg/dL (0.6-1.0); POTASSIUM 4.4 mmol/L (3.5-5.1)
[2020-05-21 19:30] LABS: ALBUMIN 2.9 g/dL (3.4-5.0); ALBUMIN/GLOBULIN RATIO 0.8 (1.0-1.7); TOTAL BILIRUBIN 0.8 mg/dL (0.2-1.0); TOTAL PROTEIN 6.7 g/dL (6.4-8.2)
[2020-05-21] MEDS ORDERED: IV NORMAL SALINE 1,000ML 1,000 ML IV ONE (19:30)
--- NOTE | 2020-05-21 19:54 | RAD ---
EXAM: CT head and cervical spine without contrast INDICATION: Fall, on blood thinners COMPARISON: CT head and C-spine 03/05/2020 TECHNIQUE: Axial CT imaging through the head and cervical spine without intravenous contrast. Sagitta l and coronal reformats were obtained. One or more of the following individualized dose reduction techniques were utilized for this examinat ion: 1. Automated exposure control 2. Adjustment of the mA and/or kV according to patient size 3. Use of iterative reconstruction technique. FINDINGS: CT head: The ventricles and sulci are mildly prominent, within normal limits for age. Lopez-white matter differ entiation is maintained. There is no intracranial hemorrhage, acute infarct, or mass lesion. Basal ci sterns are clear. The calvarium is intact. Paranasal sinuses and mastoid air cells are clear. Globes and orbits are intact. CT cervical spine: No acute fracture. There is unchanged to mm anterolisthesis of C2 on C3 and C7 on T1 and reversal of lordosis. There is severe disc space narrowing from C3-C4 through C6-C7. 3.There is mild rightward cu rvature of the cervical spine. Multilevel foraminal narrowing due to uncovertebral joint proliferatio n. There is canal narrowing at C7 due to disc osteophyte complex. Mild emphysema and pleural parenchy mal scarring in the lung apices. Prevertebral soft tissues normal. IMPRESSION: 1. No acute intracranial abnormality. 2. No acute osseous abnormality of the cervical spine. 3. Unchanged multilevel degenerative disc disease. Electronically signed by: Breonna King MD (05/21/2020 7:52 PM) [id number]
--- NOTE | 2020-05-21 19:58 | RAD ---
Exam: CT of chest, abdomen and pelvis with contrast INDICATION: Fall on blood thinners TECHNIQUE: Sequential axial images through the chest, abdomen and pelvis obtained following the admin istration of 75 mL of Omni 300 IV contrast. Sagittal and coronal reformatted images were reconstructe d from the axial data and reviewed. 3-D reformatted images were reconstructed from the axial data and reviewed. Comparisons: None FINDINGS: Visualized portions of the thyroid are unremarkable. No enlarged mediastinal lymph nodes are identifi ed. Heart is enlarged. No pericardial effusion. Thoracic aorta has a normal course and caliber. Pulmonary artery is not enlarged. Airways are patent. No consolidation or pneumothorax. Moderate centrilobular emphysematous change not ed the upper lungs. No suspicious lung nodules. No pleural effusion or thickening. Liver, spleen, pancreas, and adrenals are unremarkable. Gallbladder is distended and appears thin-wal led. No perinephric inflammation or hydronephrosis. No renal or ureteral calculi are identified. Bladder is distended and appears thin-walled. Uterus not enlarged. No abnormal adnexal mass. Diverticulosis is noted in the sigmoid colon without evidence of acute diverticulitis. Remainder of t he large and small bowel are unremarkable. Appendix is nonidentified. Trace free fluid. No free air. Abdominal aorta has a normal course and caliber. Abdominal vasculature is patent. No enlarged intra-abdominal lymph nodes. No suspicious osseous lesions or acute fractures. Compression fracture involving the superior endplat e of T12 with less than 25% height loss. There are numerous compression deformities involving the mid thoracic spine with vertebroplasty changes. IMPRESSION: 1. Compression fracture of the T12 vertebral body which is age indeterminate, correlate with point t enderness. 2. Chronic appearing fractures of the midthoracic spine. 3. Cholelithiasis with wall thickening of the gallbladder. Correlate with symptomatology to determin e the need for further evaluation with ultrasound. 4. Diverticulosis without evidence of acute diverticulitis. Exposure: One or more of the following in the visualized dose reduction techniques were utilized for this examination: 1. Automated exposure control 2. Adjustment of the MA and/or KV according to patient size 3. Use of iterative of reconstructive technique Electronically signed by: Darion Ramírez MD (05/21/2020 7:56 PM) [facility]
[2020-05-21] MEDS ORDERED: CONTRAST GIVEN. MC PRN (20:00)
[2020-05-21 20:22] LABS: % BASOS 2 % (0-3); % EOS 1 % (0-5); % LYMPHS 9 % (24-48); % MONOS 15 % (0-10); % SEGS 73 % (35-66)
[2020-05-21 20:23] LABS: PLT ESTIMATE DECREASED (ADEQUATE)
[2020-05-21 20:40] VITALS: BP 138/70
--- NOTE | 2020-05-22 03:08 | EKG ---
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
== END 2020-05-21 22:33 | disposition short-term general hospital (02) ==
LOC: ER 17:52
DX: E87.1 Hypo-osmolality and hyponatremia (principal); R77.8 Other specified abnormalities of plasma proteins; R53.83 Other fatigue; I48.91 Unspecified atrial fibrillation; F41.9 Anxiety disorder, unspecified; M19.90 Unspecified osteoarthritis, unspecified site; I25.10 Atherosclerotic heart disease of native coronary artery without angina pectoris; J44.9 Chronic obstructive pulmonary disease, unspecified; F17.210 Nicotine dependence, cigarettes, uncomplicated; Z79.01 Long term (current) use of anticoagulants; W18.39XA Other fall on same level, initial encounter; Y93.89 Activity, other specified; Y92.89 Other specified places as the place of occurrence of the external cause; Y99.8 Other external cause status
CPT/HCPCS: 36415; 70450; 71260; 72125; 74177; 80053; 83605; 83735; 83880; 83935; 84300; 84443; 84484; 85007; 85025; 85610; 93005; 96360; 96361; 99285; J7030; Q9967